=== PATIENT | female | born 2000 | race Caucasian/White ===

== ENCOUNTER 2022-10-18 19:35 | Emergency (ER) | payer MEDICAID ==
[2022-10-18] MEDS ORDERED: Fluconazole 100 MG Tab PO ONE (19:55)
== END 2022-10-18 20:06 | disposition home or self-care (01) ==
LOC: VM.ED 19:35
DX: B37.31 Acute candidiasis of vulva and vagina (principal)
CPT/HCPCS: 99283; A9270